=== PATIENT | female | born 1995 | race African-American/Black ===

== ENCOUNTER 2016-10-03 08:05 | Emergency (ER) | payer OTHER ==
[~2016-10-03] VITALS: Ht 170.2 cm; Wt 100.0 kg
[~2016-10-03 08:05] MED LIST: LEVAQUIN 750MG750 M1 PO; MEDROL 4MG DOSPA4 MG PO; TUSS PO; ZOFRAN ODT4 MG PO
[2016-10-03] MEDS ORDERED: MOBIC 7.5MG7.5 MG PO (08:13)
[2016-10-03] MEDS ORDERED: ZOLOFT 50MG50 MG PO (08:13)
[2016-10-03] MEDS ORDERED: VOLTAREN GEL 1%1 TU TP (08:13)
[2016-10-03] MEDS ORDERED: PROAIR HFA0.09 MG/AC IH (08:14)
[2016-10-03 10:25] VITALS: BP 116/64; PULSE 93; TEMP 98.4
== END 2016-10-03 10:25 | disposition home or self-care (01) ==
LOC: COL.ER 08:05
DX: K12.2 Cellulitis and abscess of mouth (principal); F17.210 Nicotine dependence, cigarettes, uncomplicated
CPT/HCPCS: J1100

== ENCOUNTER 2017-06-07 02:51 | Emergency (ER) | payer OTHER ==
[~2017-06-07] VITALS: Ht 170.2 cm; Wt 100.0 kg
[~2017-06-07 02:51] MED LIST changes: +MOBIC 7.5MG7.5 MG PO; +PROAIR HFA0.09 MG/AC IH; +VOLTAREN GEL 1%1 TU TP; +ZOLOFT 50MG50 MG PO
[2017-06-07 02:55] VITALS: BP 133/78; PULSE 74; TEMP 98.7
[2017-06-07] MEDS ORDERED: CEPHALEXIN500 M1 PO (03:36)
== END 2017-06-07 03:52 | disposition home or self-care (01) ==
LOC: COL.ER 02:51
DX: S61.451A Open bite of right hand, initial encounter (principal); Z23 Encounter for immunization; W53.11XA Bitten by rat, initial encounter; Y92.009 Unspecified place in unspecified non-institutional (private) residence as the place of occurrence of the external cause

== ENCOUNTER 2017-09-20 09:26 | Emergency (ER) | payer OTHER ==
[~2017-09-20] VITALS: Ht 167.6 cm; Wt 93.2 kg
[~2017-09-20 09:26] MED LIST changes: +CEPHALEXIN500 M1 PO
[2017-09-20 09:33] VITALS: TEMP 98.2
[2017-09-20 09:58] LABS: COLLECTION METHOD CLEAN CATCH
[2017-09-20 10:08] LABS: HEMATOCRIT 41.4 % (37.0-47.0); HEMOGLOBIN 13.9 g/dl (12.5-16.0); MEAN CELL VOLUME 91 fl (80.0-100.0); MEAN CORPUSCULAR HEMOGLOBIN 31 pg (27.0-31.0); MEAN CORPUSCULAR HGB CONC 34 g/dl (33.0-37.0); MEAN PLATELET VOLUME 9.1 fl (7.4-10.4); PLATELET COUNT 481 K/mm3 (130-400); RED BLOOD COUNT 4.55 M/mm3 (4.10-5.30); REDCELL DISTRIBUTION WIDTH-CV 12.8 % (11.5-14.5)
[2017-09-20 10:08] LABS: MUCOUS Present /lpf; PH 6 (5-8); URINE APPEARANCE Hazy; URINE BACTERIA Rare /hpf; URINE BILIRUBIN Negative (NEGATIVE); URINE BLOOD Negative (NEGATIVE); URINE COLOR Yellow; URINE GLUCOSE Negative (NEGATIVE); URINE KETONE Negative (NEGATIVE); URINE LEUKOCYTE ESTERASE Trace (NEGATIVE); URINE NITRATE Negative (NEGATIVE); URINE PROTEIN(semi-quant) Negative (NEGATIVE); URINE RBC None Seen /hpf; URINE UROBILINOGEN Negative (NEGATIVE)
[2017-09-20 10:12] LABS: TRICYCLIC ANTIDEPRESS URINE NEGATIVE
[2017-09-20 10:20] LABS: ALANINE AMINOTRANSFERASE 27 U/L (9-52); ALBUMIN 5.2 gm/dL (3.5-5.0); ALKALINE PHOSPHATASE 93 U/L (50-136); ANION GAP 12 mmol/L (7-16); AST,SGOT 23 U/L (15-37); BILIRUBIN,TOTAL 0.4 mg/dL (0.0-1.0); BLOOD UREA NITROGEN 11 mg/dL (7-17); CARBON DIOXIDE 27 mmol/L (22-30); CHLORIDE 102 mmol/L (98-107); CREATININE, serum 0.76 mg/dL (0.52-1.25); GLUCOSE 88 mg/dL (74-106); POTASSIUM 3.7 mmol/L (3.4-5.0); SODIUM 141 mmol/L (137-145)
[2017-09-20 10:21] LABS: ACETAMINOPHEN < 10 ug/mL (10-30); ALCOHOL(ethanol),MEDICAL < 10 mg/dL; SALICYLATE < 1.0 mg/dL
[2017-09-20 10:23] LABS: BAND 15 % (0-10); LYMPHOCYTE 36 % (20.0-51.0); NEUTROPHILS 44 % (42.0-75.2)
[2017-09-20 10:24] LABS: PLATELET ESTIMATE INCREASED (NORMAL)
[2017-09-20 23:42] VITALS: BP 114/78
[2017-09-21 01:13] VITALS: PULSE 98
== END 2017-09-21 01:13 | disposition other institution (70) ==
LOC: COL.ER 09:26
PROVIDERS: Emergency Medicine
DX: F32.9 Major depressive disorder, single episode, unspecified (principal); F41.9 Anxiety disorder, unspecified; J45.909 Unspecified asthma, uncomplicated; D69.3 Immune thrombocytopenic purpura; Z91.5 Personal history of self-harm

== ENCOUNTER 2018-11-03 15:04 | Emergency (ER) | payer SELFPAY ==
[~2018-11-03] VITALS: Ht 167.6 cm; Wt 86.4 kg
[2018-11-03 15:10] VITALS: BP 135/77; TEMP 99
[2018-11-03 15:53] LABS: BASO % 0.4 % (0.0-2.0); EOS # 0.1 (0.0-0.7); EOS % 0.6 % (0-4.0); GRAN # 5.1 (1.4-6.5); GRAN % 62.3 % (42.2-75.2); HEMATOCRIT 37.3 % (37.0-47.0); HEMOGLOBIN 12.4 g/dl (12.5-16.0); LYMPH # 2.5 (1.2-3.4); LYMPH % 30.6 % (20.0-51.0); MEAN CELL VOLUME 92 fl (80.0-100.0); MEAN CORPUSCULAR HEMOGLOBIN 31 pg (27.0-31.0); MEAN CORPUSCULAR HGB CONC 33 g/dl (33.0-37.0); MEAN PLATELET VOLUME 9.1 fl (7.4-10.4); MONO # 0.5 (0.1-0.6); PLATELET COUNT 394 K/mm3 (130-400); RED BLOOD COUNT 4.06 M/mm3 (4.10-5.30); REDCELL DISTRIBUTION WIDTH-CV 13.4 % (11.5-14.5)
[2018-11-03 15:58] LABS: COLLECTION METHOD CLEAN CATCH
[2018-11-03 16:02] LABS: POTASSIUM 3.8 mmol/L (3.4-5.0)
[2018-11-03 16:03] LABS: PH 7 (5-8); SQUAMOUS EPITHELIAL 0-2 /hpf; URINE APPEARANCE Clear; URINE BACTERIA None Seen /hpf; URINE BILIRUBIN Negative (NEGATIVE); URINE BLOOD 1+ (NEGATIVE); URINE COLOR Yellow; URINE GLUCOSE Negative (NEGATIVE); URINE KETONE Trace (NEGATIVE); URINE LEUKOCYTE ESTERASE Negative (NEGATIVE); URINE NITRATE Negative (NEGATIVE); URINE PROTEIN(semi-quant) Negative (NEGATIVE); URINE RBC 0-2 /hpf; URINE UROBILINOGEN Negative (NEGATIVE)
[2018-11-03 16:05] LABS: ALANINE AMINOTRANSFERASE 30 U/L (9-52); ALBUMIN 4.5 gm/dL (3.5-5.0); ALKALINE PHOSPHATASE 87 U/L (50-136); ANION GAP 9 mmol/L (7-16); AST,SGOT 26 U/L (15-37); BILIRUBIN,TOTAL 0.3 mg/dL (0.0-1.0); BLOOD UREA NITROGEN 11 mg/dL (7-17); CALCIUM 9.5 mg/dL (8.4-10.2); CARBON DIOXIDE 27 mmol/L (22-30); CHLORIDE 102 mmol/L (98-107); CREATININE, serum 0.72 mg/dL (0.52-1.25); GLUCOSE 90 mg/dL (74-106); LIPASE 70 U/L (23-300); SODIUM 139 mmol/L (137-145); TOTAL PROTEIN 8.5 gm/dL (6.4-8.2)
[2018-11-03 16:06] LABS: C-REACTIVE PROTEIN < 0.5 mg/dL (0.0-0.9)
[2018-11-03] MEDS ORDERED: BUSPAR5 MG (16:06)
[2018-11-03] MEDS ORDERED: ZOLOFT 50MG50 MG PO (16:06)
[2018-11-03] MEDS ORDERED: NORCO 325 MG-51 TAB PO (18:59)
[2018-11-03] MEDS ORDERED: ZOFRAN ODT4 MG PO (18:59)
[2018-11-03] MEDS ORDERED: ORTHO TRI-CYCLE1 TA2 PO (18:59)
[2018-11-03 19:20] VITALS: PULSE 107
== END 2018-11-03 19:20 | disposition home or self-care (01) ==
LOC: COL.ER 15:04
PROVIDERS: Emergency Medicine
DX: N94.89 Other specified conditions associated with female genital organs and menstrual cycle (principal); Z90.89 Acquired absence of other organs; Z87.891 Personal history of nicotine dependence
CPT/HCPCS: J1885; J2060; J3010; J7030

== ENCOUNTER 2019-09-22 16:39 | Emergency (ER) | payer SELFPAY ==
[~2019-09-22] VITALS: Ht 167.6 cm; Wt 104.5 kg
[~2019-09-22 16:39] MED LIST changes: +BUSPAR5 MG; +NORCO 325 MG-51 TAB PO; +ORTHO TRI-CYCLE1 TA2 PO
[2019-09-22 17:19] VITALS: TEMP 97.3
[2019-09-22 18:19] LABS: STREP SCREEN NEGATIVE
[2019-09-22 18:50] VITALS: BP 126/78; PULSE 95
== END 2019-09-22 18:56 | disposition home or self-care (01) ==
LOC: COL.ER 16:39
PROVIDERS: Physician Assistant
DX: J11.1 Influenza due to unidentified influenza virus with other respiratory manifestations (principal)

== ENCOUNTER 2019-10-04 07:09 | Emergency (ER) | payer SELFPAY ==
[~2019-10-04] VITALS: Ht 167.6 cm; Wt 100.0 kg
[2019-10-04 07:15] VITALS: BP 128/72; TEMP 97.4
[2019-10-04] MEDS ORDERED: AMOXICILLIN 8751 TAB PO (07:41)
[2019-10-04 07:51] LABS: STREP SCREEN POSITIVE
[2019-10-04 08:32] VITALS: PULSE 115
== END 2019-10-04 08:32 | disposition home or self-care (01) ==
LOC: COL.ER 07:09
PROVIDERS: Emergency Medicine
DX: J02.0 Streptococcal pharyngitis (principal)
CPT/HCPCS: J1100